=== PATIENT | female | born 1950 | race Caucasian/White ===

== ENCOUNTER 2018-06-26 12:31 | Emergency (ER) | payer MEDICARE ==
[2018-06-26] MEDS ORDERED: IPRATROPIUM/ALBUTEROL SULFATE 3 ML SOLUTION IH ONE ×3 (13:19→17:32)
[2018-06-26 13:23] LABS: BASOPHILS % (AUTO) 0.2 % (0.0-5.0); EOSINOPHILS % (AUTO) 0.1 % (0.0-8.0); HEMATOCRIT 32.2 % (36-48); LYMPHOCYTES % (AUTO) 14.1 % (21.0-51.0); MEAN CORPUSCULAR HEMOGLOBIN 28.4 pg (27.0-33.0); MEAN CORPUSCULAR HGB CONC 32.7 g/dL (32.0-36.0); MEAN CORPUSCULAR VOLUME 86.7 fL (79-99); NEUTROPHILS % (AUTO) 77.6 % (40.0-77.0); PLATELET COUNT (AUTO) 349 K/uL (130-400); RED BLOOD CELL COUNT(AUTO) 3.72 MIL/uL (4.00-5.50); RED CELL DISTRIBUTION WIDTH 12.9 % (11.0-15.5); WHITE BLOOD COUNT (AUTO) 6.9 K/uL (4.8-10.8)
[2018-06-26 13:36] LABS: CREATININE 1.4 mg/dL (0.5-1.5); POTASSIUM 3.8 mmol/L (3.5-5.1)
[2018-06-26 13:41] LABS: ALBUMIN 3.5 g/dL (3.5-5.0); BILIRUBIN,TOTAL 0.4 mg/dL (0.2-1.0); TOTAL PROTEIN, SERUM 7.5 g/dL (6.0-8.3)
[2018-06-26 14:05] LABS: B-TYPE NATRIURETIC PEPTIDE 30 pg/mL (0-100)
[2018-06-26] MEDS ORDERED: METHYLPREDNISOLONE SOD SUCC 40MG/ML 1ML ONE (14:55)
[2018-06-26] MEDS ORDERED: BENZONATATE 100 MG CAPSULE PO ONE (14:56)
[2018-06-26] MEDS ORDERED: CEFTRIAXONE SODIUM 1 GM ONE (17:40)
[2018-06-26] MEDS ORDERED: AZITHROMYCIN 250 MG TABLET PO ONE (17:40)
== END 2018-06-26 18:22 | disposition home or self-care (01) ==
LOC: EDH 12:31
DX: J18.9 Pneumonia, unspecified organism (principal); J98.01 Acute bronchospasm; E11.9 Type 2 diabetes mellitus without complications; E07.9 Disorder of thyroid, unspecified; Z98.890 Other specified postprocedural states
CPT/HCPCS: 36415; 71046; 80053; 82550; 83880; 84484; 85025; 87804 ×2; 93005; 94640 ×3; 96374; 96375; 99285; J0696; J2920

== ENCOUNTER 2019-02-28 14:02 | Emergency (ER) | payer MEDICARE ==
[2019-02-28] MEDS ORDERED: ACETAMINOPHEN 325 MG TAB ONE (15:11)
[2019-02-28 15:13] LABS: BASOPHILS % (AUTO) 0.3 % (0.0-5.0); EOSINOPHILS % (AUTO) 1.5 % (0.0-8.0); LYMPHOCYTES % (AUTO) 18.2 % (21.0-51.0); MEAN CORPUSCULAR HEMOGLOBIN 27.4 pg (27.0-33.0); MEAN CORPUSCULAR HGB CONC 31.2 g/dL (32.0-36.0); MEAN CORPUSCULAR VOLUME 87.8 fL (79-99); MONOCYTES % (AUTO) 6.8 % (3.0-13.0); NEUTROPHILS % (AUTO) 72.9 % (40.0-77.0); PLATELET COUNT (AUTO) 284 K/uL (130-400); RED BLOOD CELL COUNT(AUTO) 3.76 MIL/uL (4.00-5.50); RED CELL DISTRIBUTION WIDTH 12.5 % (11.0-15.5); WHITE BLOOD COUNT (AUTO) 6.2 K/uL (4.8-10.8)
[2019-02-28 15:26] LABS: CREATININE 1.3 mg/dL (0.5-1.5); POTASSIUM 4.2 mmol/L (3.5-5.1)
[2019-02-28 15:30] LABS: ALBUMIN 3.5 g/dL (3.5-5.0); BILIRUBIN,DIRECT 0.1 mg/dL (0.0-0.3); BILIRUBIN,TOTAL 0.5 mg/dL (0.2-1.0); TOTAL PROTEIN, SERUM 7.3 g/dL (6.0-8.3)
[2019-02-28 15:42] LABS: APPEARANCE,URINE Clear (CLEAR); BILIRUBIN,URINE Negative (NEGATIVE); COLOR,URINE Yellow (YELLOW); GLUCOSE, URINE (UA) Negative (NEGATIVE); KETONES,URINE Negative (NEGATIVE); LEUKOCYTE ESTERASE ,URINE Negative (NEGATIVE); NITRATE,URINE Negative (NEGATIVE); OCCULT BLOOD,URINE Negative (NEGATIVE); PH,URINE 6.5 (5.0-8.0); PROTEIN,URINE Negative (NEGATIVE); UROBILINOGEN,URINE 0.2 mg/dL (0.2-1.0)
[2019-02-28] MEDS ORDERED: SODIUM CHLORIDE 0.9% 1000ML 1,000 ML IV ONE (16:00)
[2019-02-28] MEDS ORDERED: SODIUM CHLORIDE 0.9% 500ML 500 ML IV ONE (16:00)
[2019-02-28] MEDS ORDERED: IOHEXOL-350 75 ML VIAL IV ONE (16:59)
== END 2019-02-28 20:18 | disposition home or self-care (01) ==
LOC: EDH 14:02
DX: R09.1 Pleurisy (principal); E11.9 Type 2 diabetes mellitus without complications; Z90.710 Acquired absence of both cervix and uterus; Z98.890 Other specified postprocedural states
CPT/HCPCS: 36415; 71046; 71275; 80048; 80076; 81003; 83690; 85025; 85378; 99285; J7030; J7040; Q9967; 93970

== ENCOUNTER → 2019-03-29 | Outpatient (CLI) | payer MEDICARE | END | disposition home or self-care (01) | LOC: OIH 07:33 | PROVIDERS: ATTEND Family Medicine | DX: R10.30 Lower abdominal pain, unspecified (principal); I87.8 Other specified disorders of veins; M41.86 Other forms of scoliosis, lumbar region; Z96.641 Presence of right artificial hip joint | CPT/HCPCS: 74018 ==

== ENCOUNTER 2019-05-04 09:48 | Observation (INO) | payer MEDICARE, OTHER ==
[~2019-05-04] VITALS: Ht 160 cm; Wt 89.1 kg
[2019-05-04 10:15] LABS: BASOPHILS % (AUTO) 0.4 % (0.0-5.0); EOSINOPHILS % (AUTO) 0.5 % (0.0-8.0); LYMPHOCYTES % (AUTO) 9.1 % (21.0-51.0); MEAN CORPUSCULAR HEMOGLOBIN 26.9 pg (27.0-33.0); MEAN CORPUSCULAR HGB CONC 30.9 g/dL (32.0-36.0); MEAN CORPUSCULAR VOLUME 87.1 fL (79-99); MONOCYTES % (AUTO) 5.7 % (3.0-13.0); PLATELET COUNT (AUTO) 353 K/uL (130-400); RED BLOOD CELL COUNT(AUTO) 4.02 MIL/uL (4.00-5.50); RED CELL DISTRIBUTION WIDTH 12.5 % (11.0-15.5); WHITE BLOOD COUNT (AUTO) 9.7 K/uL (4.8-10.8)
[2019-05-04 10:26] LABS: CREATININE 1.4 mg/dL (0.5-1.5); POTASSIUM 3.9 mmol/L (3.5-5.1)
[2019-05-04 10:44] LABS: ALBUMIN 3.3 g/dL (3.5-5.0); BILIRUBIN,TOTAL 0.4 mg/dL (0.2-1.0); TOTAL PROTEIN, SERUM 7.5 g/dL (6.0-8.3)
[2019-05-04] MEDS ORDERED: KETOROLAC TROMETHAMINE 15MG/ML ONE (10:46)
[2019-05-04] MEDS: ZOSYN 3.375GM+NS 50ML 50 ML IV SCH ×2 (12:15→23:42)
[2019-05-04] MEDS ORDERED: VANCOMYCIN PROTOCOL PER PHARMACY IV SCH (12:30)
[2019-05-04] MEDS ORDERED: ZOSYN 3.375GM+NS 50ML 50 ML IV ONE (12:31)
[2019-05-04] MEDS: SODIUM CHLORIDE 0.9% 1000ML 1,000 ML IV SCH (14:48)
[2019-05-04] MEDS: VANCOMYCIN 1GM+NS 250ML 250 ML IV SCH (14:49)
[2019-05-04 15:30] VITALS: BP 144/76
--- NOTE | 2019-05-04 16:07 | NUR ---
PER DR. MADERA PT DOES NOT NEED SX MAY F/U OUTPATIENT. DR. CLINE AWARE. DO 2D ECHO? STATES I STILL WANT AN 2D ECHO.
[2019-05-04 19:39] VITALS: BP 136/80
--- NOTE | 2019-05-04 19:51 | NUR ---
Dr Trupti oden for pain med.
[2019-05-04 23:37] VITALS: BP 125/68
[2019-05-05] MEDS: SODIUM CHLORIDE 0.9% 1000ML 1,000 ML IV SCH ×2 (00:01→11:47)
[2019-05-05 03:33] VITALS: BP 141/69
[2019-05-05 09:06] VITALS: BP 147/75
[2019-05-05] MEDS: PANTOPRAZOLE SODIUM 40 MG TABLET.DR PO SCH (09:12)
[2019-05-05 11:51] VITALS: BP 146/85
[2019-05-05] MEDS: ZOSYN 3.375GM+NS 50ML 50 ML IV SCH ×2 (13:55→22:55)
[2019-05-05] MEDS: VANCOMYCIN 1GM+NS 250ML 250 ML IV SCH (13:56)
[2019-05-05] MEDS: COLCHICINE 0.6 MG TABLET PO SCH ×3 (15:21→17:52)
--- NOTE | 2019-05-05 16:02 | NUR ---
cm note met with patient and spouse. pt resides athome with spouse, independent with adls and ambulation, Naty mckoy, lives in [facility]. states no dme, no dc needs. dc plan is back home. Addendum: 05/05/19 at 1607 by ROSALBA PASTRANA CM Amended: Links added.
[2019-05-05 16:15] VITALS: BP 148/74
[2019-05-05] MEDS ORDERED: ACETAMINOPHEN 325 MG TAB PO PRN (20:00)
[2019-05-05] MEDS ORDERED: TEMAZEPAM 15 MG CAPSULE PO PRN (20:00)
[2019-05-05 20:07] VITALS: BP 134/86
[2019-05-05 23:19] VITALS: BP 141/72
[2019-05-06 05:35] LABS: HEMATOCRIT 28.7 % (36-48); MEAN CORPUSCULAR HEMOGLOBIN 27.1 pg (27.0-33.0); MEAN CORPUSCULAR VOLUME 87.5 fL (79-99); PLATELET COUNT (AUTO) 313 K/uL (130-400); RED BLOOD CELL COUNT(AUTO) 3.28 MIL/uL (4.00-5.50); RED CELL DISTRIBUTION WIDTH 12.5 % (11.0-15.5); WHITE BLOOD COUNT (AUTO) 5.2 K/uL (4.8-10.8)
[2019-05-06 06:29] LABS: CREATININE 1.4 mg/dL (0.5-1.5); POTASSIUM 3.6 mmol/L (3.5-5.1)
[2019-05-06 08:00] VITALS: BP 144/62
[2019-05-06] MEDS: PANTOPRAZOLE SODIUM 40 MG TABLET.DR PO SCH (08:59)
[2019-05-06] MEDS ORDERED: COLCHICINE 0.6 MG TABLET PO SCH (09:00)
[2019-05-06 12:00] VITALS: BP 158/76
--- NOTE | 2019-05-06 16:30 | NUR ---
NOTE DISCHARGE INSTRUCTIONS GIVEN AT THIS TIME. VERBALIZED UNDERSTANDING. REFER TO DC SUMMARY FOR DETAILS. NO N/V NO DISTRESS OR SOB. DENIES PAIN TO LEFT HAND OR WRIST. DR CLINE MADE ROUNDS AND LEFT SCRIPT FOR COLCHICINE. HE HAD LOOSE STOOLS THIS AM BUT NOT MANY MORE. HELD COLCHICINE THIS AM . DR CLINE AWARE. SHE WILL START WITH HOME DOSE TONIGHT.
== END 2019-05-06 16:15 | disposition home or self-care (01) ==
LOC: EDH 09:48 → EDHIP 11:50 → 3AH 14:36
PROVIDERS: ADMIT Family Medicine; ATTEND Family Medicine
DX: L03.113 Cellulitis of right upper limb (principal); M19.90 Unspecified osteoarthritis, unspecified site
CPT/HCPCS: 36415 ×2; 73110; 80048; 80053; 82948 ×8; 84145; 84550 ×2; 85025; 85027; 85651; 86140; 87040 ×2; 93306; 96365; 96366 ×3; 96367; 96368; 99285; G0378 ×14; J1885; J2543 ×5; J3370 ×3

== ENCOUNTER 2020-05-20 18:11 | Observation (INO) | payer MEDICARE, OTHER ==
[~2020-05-20] VITALS: Ht 162.6 cm; Wt 81.6 kg
[2020-05-20 18:41] LABS: BASOPHILS % (AUTO) 0.3 % (0.0-5.0); EOSINOPHILS % (AUTO) 0.3 % (0.0-8.0); HEMATOCRIT 37.9 % (36-48); LYMPHOCYTES % (AUTO) 10.6 % (21.0-51.0); MEAN CORPUSCULAR HEMOGLOBIN 26.6 pg (27.0-33.0); MEAN CORPUSCULAR HGB CONC 31.4 g/dL (32.0-36.0); MEAN CORPUSCULAR VOLUME 84.8 fL (79-99); MONOCYTES % (AUTO) 5.1 % (3.0-13.0); NEUTROPHILS % (AUTO) 83.4 % (40.0-77.0); PLATELET COUNT (AUTO) 346 K/uL (130-400); RED BLOOD CELL COUNT(AUTO) 4.47 MIL/uL (4.00-5.50); RED CELL DISTRIBUTION WIDTH 13.6 % (11.0-15.5); WHITE BLOOD COUNT (AUTO) 10.5 K/uL (4.8-10.8)
[2020-05-20] MEDS ORDERED: ONDANSETRON HCL 4 MG/2 ML VIAL ONE (18:42)
[2020-05-20] MEDS ORDERED: SODIUM CHLORIDE 0.9% 1000ML 1,000 ML IV ONE (18:44)
[2020-05-20 18:54] LABS: CREATININE 1.3 mg/dL (0.5-1.5); POTASSIUM 4.1 mmol/L (3.5-5.1)
[2020-05-20 18:58] LABS: ALBUMIN 3.8 g/dL (3.5-5.0); BILIRUBIN,TOTAL 0.4 mg/dL (0.2-1.0); TOTAL PROTEIN, SERUM 7.9 g/dL (6.0-8.3)
[2020-05-20] MEDS ORDERED: IOHEXOL-350 75 ML VIAL IV ONE (19:09)
[2020-05-20 21:01] LABS: APPEARANCE,URINE Clear (CLEAR); BILIRUBIN,URINE Negative (NEGATIVE); COLOR,URINE Yellow (YELLOW); GLUCOSE, URINE (UA) Negative (NEGATIVE); KETONES,URINE Negative (NEGATIVE); LEUKOCYTE ESTERASE ,URINE Large (NEGATIVE); NITRATE,URINE Negative (NEGATIVE); OCCULT BLOOD,URINE Negative (NEGATIVE); PH,URINE 5.5 (5.0-8.0); PROTEIN,URINE Negative (NEGATIVE); UROBILINOGEN,URINE 0.2 mg/dL (0.2-1.0)
[2020-05-20 21:09] LABS: RBC,URINE 0-1 /HPF (0-1)
[2020-05-20 21:10] LABS: BACTERIA,URINE Rare /HPF (None Seen); SQUAMOUS EPITHELIAL CELL,UR Rare /HPF (0-2)
[2020-05-20] MEDS: LACTATED RINGERS 1000ML 1,000 ML IV SCH (22:45)
[2020-05-20] MEDS ORDERED: ACETAMINOPHEN-CODEINE 300/30MG TAB PO PRN (22:45)
[2020-05-20] MEDS ORDERED: ONDANSETRON HCL 4 MG/2 ML VIAL IV PRN (22:45)
[2020-05-20] MEDS ORDERED: HYDROCODONE/ACETAMINOPHEN 5/325 MG TAB PO PRN (22:45)
[2020-05-21] MEDS ORDERED: LACTATED RINGERS 1000ML 1,000 ML IV ONE (01:06)
[2020-05-21] MEDS ORDERED: LABETALOL 20 MG/4 ML DISP.SYRIN IV PRN (04:00)
[2020-05-21] MEDS: CEFTRIAXONE SODIUM 500 MG VIAL IV SCH ×2 (04:00→09:00)
[2020-05-21] MEDS: INSULIN HUMULIN R 100 UNIT/ML 3ML SQ SCH ×3 (06:00→17:12)
[2020-05-21] MEDS: METRONIDAZOLE 500 MG TABLET PO SCH ×3 (06:00→20:56)
[2020-05-21 07:06] LABS: HEMATOCRIT 35.1 % (36-48); MEAN CORPUSCULAR HEMOGLOBIN 27.3 pg (27.0-33.0); MEAN CORPUSCULAR HGB CONC 31.6 g/dL (32.0-36.0); MEAN CORPUSCULAR VOLUME 86.2 fL (79-99); PLATELET COUNT (AUTO) 257 K/uL (130-400); RED BLOOD CELL COUNT(AUTO) 4.07 MIL/uL (4.00-5.50); WHITE BLOOD COUNT (AUTO) 5.7 K/uL (4.8-10.8)
[2020-05-21 07:23] LABS: ALBUMIN 3.2 g/dL (3.5-5.0); BILIRUBIN,TOTAL 0.5 mg/dL (0.2-1.0); CREATININE 1.2 mg/dL (0.5-1.5); POTASSIUM 3.7 mmol/L (3.5-5.1); TOTAL PROTEIN, SERUM 6.8 g/dL (6.0-8.3)
[2020-05-21 08:22] VITALS: BP 143/80
[2020-05-21] MEDS: LACTATED RINGERS 1000ML 1,000 ML IV SCH ×2 (08:45→18:45)
[2020-05-21] MEDS: LISINOPRIL 5 MG TABLET PO SCH (09:00)
[2020-05-21] MEDS ORDERED: FAMOTIDINE 20MG TAB 20 MG TAB PO SCH (09:00)
[2020-05-21 09:02] LABS: EOSINOPHILS % (MANUAL) 1 % (1-6); LYMPHOCYTES % (MANUAL) 26 % (22-44); MONOCYTES % (MANUAL) 4 % (2-9); SEGMENTED NEUTROPHILS % 69 % (40-70)
[2020-05-21 09:03] LABS: MAN.DIFF COMMENT-IMPRESSION MANUAL DIFFERENTIAL; PLATELET MORPHOLOGY COMMENT ADEQUATE
[2020-05-21] MEDS ORDERED: OMEP40CA13 PO (09:58)
[2020-05-21] MEDS ORDERED: METF-446 PO (09:58)
[2020-05-21] MEDS ORDERED: LORA10TA7 PO (09:58)
[2020-05-21] MEDS ORDERED: ATOR10 PO (09:58)
[2020-05-21] MEDS ORDERED: MECO10005 PO (09:58)
[2020-05-21] MEDS ORDERED: ASPI-1197 PO (09:58)
[2020-05-21] MEDS ORDERED: LEVO88CA4 PO (09:58)
[2020-05-21 11:15] VITALS: BP 141/64
[2020-05-21 15:31] VITALS: BP 142/69
[2020-05-21] MEDS: METFORMIN HCL 500 MG TABLET PO SCH (17:00)
[2020-05-21 20:00] VITALS: BP 136/62
[2020-05-21] MEDS ORDERED: MAGNESIUM CITRATE 296 ML SOLUTION PO ONE (20:15)
[2020-05-21] MEDS: ENOXAPARIN SODIUM 40 MG/0.4 ML SYRINGE SQ SCH (20:57)
[2020-05-21] MEDS ORDERED: ATORVASTATIN CALCIUM 10 MG TABLET PO SCH (21:00)
[2020-05-21] MEDS ORDERED: NON-FORMULARY MEDICATION 1 EACH (Metformin HCl 1,000 MG) PO SCH (21:00)
[2020-05-21 23:50] VITALS: BP 136/67
[2020-05-22 03:54] VITALS: BP 112/53
[2020-05-22] MEDS: LACTATED RINGERS 1000ML 1,000 ML IV SCH ×2 (04:45→14:45)
[2020-05-22] MEDS: INSULIN HUMULIN R 100 UNIT/ML 3ML SQ SCH ×3 (06:00→12:00)
[2020-05-22] MEDS: METRONIDAZOLE 500 MG TABLET PO SCH ×2 (06:03→15:01)
[2020-05-22] MEDS ORDERED: LEVOTHYROXINE 88 MCG TABLET PO SCH (06:30)
[2020-05-22 07:30] VITALS: BP 131/66
[2020-05-22] MEDS ORDERED: PANTOPRAZOLE SODIUM 40 MG TABLET.DR PO SCH (09:00)
[2020-05-22] MEDS ORDERED: LORATADINE 10 MG TABLET PO SCH (09:00)
[2020-05-22] MEDS: CEFTRIAXONE SODIUM 500 MG VIAL IV SCH ×2 (09:00→09:32)
[2020-05-22] MEDS ORDERED: NON-FORMULARY MEDICATION 1 EACH (Omeprazole 40 MG) PO SCH (09:00)
[2020-05-22] MEDS ORDERED: NON-FORMULARY MEDICATION 1 EACH (Mecobalamin (B12 Active) 1,000 MCG) PO SCH (09:00)
[2020-05-22] MEDS ORDERED: CYANOCOBALAMIN (VITAMIN B-12) 1,000 MCG TABLET PO SCH (09:00)
[2020-05-22] MEDS ORDERED: NON-FORMULARY MEDICATION 1 EACH (Levothyroxine Sodium (Levothyroxine) 88 MCG) PO SCH (09:00)
[2020-05-22] MEDS ORDERED: ASPIRIN 81MG TAB.CHEW PO SCH (09:00)
[2020-05-22] MEDS: METFORMIN HCL 500 MG TABLET PO SCH ×2 (09:20→17:29)
[2020-05-22] MEDS: LISINOPRIL 5 MG TABLET PO SCH (09:20)
[2020-05-22] MEDS: ENOXAPARIN SODIUM 40 MG/0.4 ML SYRINGE SQ SCH (09:21)
[2020-05-22] MEDS ORDERED: CEFTRIAXONE SODIUM 1 GM IV SCH (09:27)
[2020-05-22 12:26] VITALS: BP 135/62
== END 2020-05-22 17:53 | disposition home or self-care (01) ==
LOC: EDH 18:11 → EDHIP 22:29 → 3BH 05-21 08:31
PROVIDERS: ADMIT Internal Medicine; ATTEND Internal Medicine
DX: K56.609 Unspecified intestinal obstruction, unspecified as to partial versus complete obstruction (principal); Z20.822 Contact with and (suspected) exposure to COVID-19; K43.9 Ventral hernia without obstruction or gangrene; K57.90 Diverticulosis of intestine, part unspecified, without perforation or abscess without bleeding; N39.0 Urinary tract infection, site not specified; E11.9 Type 2 diabetes mellitus without complications; K59.00 Constipation, unspecified; I10 Essential (primary) hypertension; E03.9 Hypothyroidism, unspecified; Z90.710 Acquired absence of both cervix and uterus; Z96.659 Presence of unspecified artificial knee joint; Z79.84 Long term (current) use of oral hypoglycemic drugs; Z79.899 Other long term (current) drug therapy
CPT/HCPCS: 36415 ×2; 71045; 74018; 74177; 80053 ×2; 81001; 82948; 83690; 85025 ×2; 86850; 86870; 86900; 86901; 87088; 87426; 93005; 96361; 96372 ×2; 96374; 96376; 99291; G0378 ×43; J0696 ×2; J1650 ×2; J2405; J7030; J7120 ×3; Q9967; U0003

== ENCOUNTER 2022-05-24 10:05 | Emergency (ER) | payer MEDICARE, OTHER ==
[~2022-05-24] VITALS: Ht 162.6 cm; Wt 67.1 kg
[~2022-05-24 10:05] MED LIST: ASPI-1197 PO; ATOR10 PO; LEVO88CA4 PO; LORA10TA7 PO; MECO10005 PO; METF-446 PO; OMEP40CA21 PO
[2022-05-24] MEDS ORDERED: MECLIZINE HCL 25 MG TABLET PO ONE (11:00)
[2022-05-24] MEDS ORDERED: LACTATED RINGERS 1000ML 1,000 ML IV ONE (11:00)
[2022-05-24 11:27] LABS: BASOPHILS % (AUTO) 0.3 % (0.0-5.0); EOSINOPHILS % (AUTO) 0.6 % (0.0-8.0); HEMATOCRIT 39.3 % (36-48); LYMPHOCYTES % (AUTO) 14.9 % (21.0-51.0); MEAN CORPUSCULAR HEMOGLOBIN 28.3 pg (27.0-33.0); MEAN CORPUSCULAR HGB CONC 31.8 g/dL (32.0-36.0); MEAN CORPUSCULAR VOLUME 89.1 fL (79-99); MONOCYTES % (AUTO) 5.2 % (3.0-13.0); NEUTROPHILS % (AUTO) 78.7 % (40.0-77.0); PLATELET COUNT (AUTO) 304 K/uL (130-400); RED BLOOD CELL COUNT(AUTO) 4.41 MIL/uL (4.00-5.50); RED CELL DISTRIBUTION WIDTH 14.2 % (11.0-15.5); WHITE BLOOD COUNT (AUTO) 6.6 K/uL (4.8-10.8)
[2022-05-24 11:32] LABS: CREATININE 1.2 mg/dL (0.5-1.5); POTASSIUM 3.4 mmol/L (3.5-5.1)
[2022-05-24 11:37] LABS: ALBUMIN 3.7 g/dL (3.5-5.0); TOTAL PROTEIN, SERUM 6.9 g/dL (6.0-8.3)
[2022-05-24] MEDS ORDERED: MECL-262 PO (12:11)
[2022-05-24 12:15] VITALS: BP 133/68
== END 2022-05-24 12:30 | disposition home or self-care (01) ==
LOC: EDH 10:05
DX: R42 Dizziness and giddiness (principal); I10 Essential (primary) hypertension; Z90.49 Acquired absence of other specified parts of digestive tract; Z90.710 Acquired absence of both cervix and uterus; Z79.82 Long term (current) use of aspirin; Z79.84 Long term (current) use of oral hypoglycemic drugs
CPT/HCPCS: 99285; 96360; 70450; 71045; 84484; 80053; 83880; 85025; 36415; 93005; J7120